=== PATIENT | female | born 1995 | race Caucasian/White ===

== ENCOUNTER 2017-10-19 08:10 | Outpatient (CLI) | payer BC ==
--- NOTE | 2017-10-19 10:20 | ULT ---
RIGHT UPPER QUADRANT ABDOMINAL ULTRASOUND: HISTORY: Right upper quadrant abdominal pain with nausea for 8 days. TECHNIQUE: Multiplanar naranjo-scale and color Doppler images were obtained in a right upper quadrant abdominal ult rasound. FINDINGS: The liver is normal in echogenicity without focal lesions or intrahepatic ductal dilatation. The gal lbladder is normal without stones, sludge, gallbladder wall thickening, or pericholecystic fluid. Th e common bile duct is normal, measuring 3 mm. The visualized portions of the pancreas are unremarkable. The right kidney is normal in echogenicity without hydronephrosis or calculus and measures 11.3 cm in length. IMPRESSION: Unremarkable examination. POS: [facility]
== END 2017-10-19 08:11 | disposition home or self-care (01) ==
LOC: SCSULT 08:10
PROVIDERS: ATTEND Family Medicine
DX: R10.13 Epigastric pain (principal)
CPT/HCPCS: 76705